=== PATIENT | male | born 1995 | race Caucasian/White ===

== ENCOUNTER 2016-04-17 00:37 | Emergency (ER) | payer OTHER ==
[2016-04-17] MEDS ORDERED: NS 0.9% 1000 ML* 3,000 ML IV ONE (01:25)
[2016-04-17] MEDS ORDERED: Ondansetron ODT TAB* 4 MG PO ONE (01:27)
[2016-04-17 01:40] LABS: Hematocrit 51 % (42-52); Hemoglobin 17.2 g/dl (14.0-18.0); Mean Corpuscular HGB Conc 34 g/dl (31-36); Mean Corpuscular Hemoglobin 29 pg (27-31); Mean Corpuscular Volume 86 fL (80-94); Mean Platelet Volume 8 um3 (7.4-10.4); Red Blood Count 5.89 10^6/ul (4.0-5.4); Red Cell Distribution Width 13 % (10.5-15); White Blood Count 16.7 10^3/ul (3.5-10.8)
[2016-04-17 01:46] LABS: Add Diff/Slide Review? Slide Review Added
[2016-04-17 01:51] LABS: Albumin 5.2 g/dL (3.2-5.2); BUN/Creatinine Ratio 17.2 (8-20); C Reactive Protein 1.43 mg/L (< 5.00); Calcium 10.3 mg/dL (8.6-10.3); EGFR African American 131.9 (>60); EGFR Non-African American 102.6 (>60); Globulin 2.7 g/dL (2-4); Magnesium 1.6 mg/dL (1.9-2.7); Total Bilirubin 1.2 mg/dL (0.2-1.0); Total Protein 7.9 g/dL (6.4-8.9)
[2016-04-17] MEDS ORDERED: Ondansetron ODT TAB* 4 MG SL ONE (02:15)
[2016-04-17 03:11] VITALS: BP 133/58
--- NOTE | 2016-04-17 20:50 | ED ---
Abdominal Pain/Male - HPI Summary HPI Summary: Patient arrives to ED 3 hours after eating some undercooked hamburger meat with CC of N/V/D. He states he feels extremely dehydrated, but vomiting and diarrhea has subsided. He still feels nauseous. He is requesting repletion of fluids. Denies sick contacts or recent illness. 3 episodes of vomiting, 1 episode of diarrhea since eating dinner. Denies fever, chills or sweats. - History of Current Complaint Chief Complaint: EDAbdPain Stated Complaint: VOMITING Time Seen by Provider: 04/17/16 01:22 Hx Obtained From: Patient Onset/Duration: Sudden Onset Timing: Constant Severity Initially: Moderate Severity Currently: Moderate Pain Intensity: 3 Pain Scale Used: 0-10 Numeric Location: Diffuse Radiates: No Character: Cramping Aggravating Factor(s): Nothing Alleviating Factor(s): Nothing Associated Signs And Symptoms: Positive: Nausea, Vomiting, Diarrhea - Risk Factors Testicular Torsion: Negative Cardiac Risk Factors: Negative - Allergies/Home Medications Allergies/Adverse Reactions: Allergies Allergy/AdvReac Type Severity Reaction Status Date / Time No Known Allergies Allergy Verified 04/17/16 01:35 Home Medications: Home Medications NK [No Home Medications Reported] 04/17/16 [History Confirmed 04/17/16] PMH/Surg Hx/FS Hx/Imm Hx Previously Healthy: Yes Infectious Disease History: No Infectious Disease History: Denies: Traveled Outside the [place] in Last 30 Days - Social History Occupation: Unemployed Lives: With Family Alcohol Use: Rare Hx Substance Use: No Substance Use Type: Reports: None Hx Tobacco Use: No Smoking Status (MU): Never Smoked Tobacco Review of Systems Constitutional: Negative Cardiovascular: Negative Respiratory: Negative Positive: Abdominal Pain, Vomiting, Diarrhea, Nausea Genitourinary: Negative Positive: no symptoms reported, see HPI Musculoskeletal: Negative Skin: Negative Psychological: Normal All Other Systems Reviewed And Are Negative: Yes Physical Exam Triage Information Reviewed: Yes Vital Signs On Initial Exam: Initial Vitals Temp Pulse Resp BP Pulse Ox 97.7 F 101 21 116/58 99 04/17/16 01:00 04/17/16 01:00 04/17/16 01:00 04/17/16 01:00 04/17/16 01:00 Vital Signs Reviewed: Yes Appearance: Positive: Well-Appearing, Well-Nourished Skin: Positive: Skin Color Reflects Adequate Perfusion Eyes: Positive: Normal, [place] Neck: Positive: Supple, No Lymphadenopathy Respiratory/Lung Sounds: Positive: Clear to Auscultation, Breath Sounds Present Cardiovascular: Positive: Normal, RRR Abdomen Description: Positive: Soft Bowel Sounds: Positive: Present Musculoskeletal: Positive: Normal, Strength/ROM Intact Neurological: Positive: Normal, Sensory/Motor Intact Psychiatric: Positive: Normal AVPU Assessment: Alert Diagnostics - Vital Signs Vital Signs Temp Pulse Resp BP Pulse Ox 04/17/16 03:07 99.2 F 89 21 133/58 04/17/16 03:06 99.2 F 89 21 133/54 99 04/17/16 01:00 97.7 F 101 21 116/58 99 - Laboratory Lab Results: Lab Results 04/17/16 04/17/16 Range/Units 01:05 01:05 WBC 16.7 H (3.5-10.8) 10^3/ul RBC 5.89 H (4.0-5.4) 10^6/ul Hgb 17.2 (14.0-18.0) g/dl Hct 51 (42-52) % MCV 86 (80-94) fL MCH 29 (27-31) pg MCHC 34 (31-36) g/dl RDW 13 (10.5-15) % Plt Count 258 (150-450) 10^3/ul MPV 8 (7.4-10.4) um3 Neut % (Auto) 86.5 H (38-83) % Lymph % (Auto) 5.5 L (25-47) % [place] % (Auto) 7.3 (1-9) % Eos % (Auto) 0.5 (0-6) % Baso % (Auto) 0.2 (0-2) % Absolute Neuts (auto) 14.5 H (1.5-7.7) 10^3/ul Absolute Lymphs (auto) 0.9 L (1.0-4.8) 10^3/ul Absolute Monos (auto) 1.2 H (0-0.8) 10^3/ul Absolute Eos (auto) 0.1 (0-0.6) 10^3/ul Absolute Basos (auto) 0 (0-0.2) 10^3/ul Absolute Nucleated RBC 0.02 10^3/ul Nucleated RBC % 0.1 Sodium 134 (133-145) mmol/L Potassium 4.0 (3.5-5.0) mmol/L Chloride 98 L (101-111) mmol/L Carbon Dioxide 23 (22-32) mmol/L Anion Gap 13 H (2-11) mmol/L BUN 16 (6-24) mg/dL Creatinine 0.93 (0.67-1.17) mg/dL Est GFR ( Amer) 131.9 (>60) Est GFR (Non-Af Amer) 102.6 (>60) BUN/Creatinine Ratio 17.2 (8-20) Glucose 130 H (70-100) mg/dL Calcium 10.3 (8.6-10.3) mg/dL Magnesium 1.6 L (1.9-2.7) mg/dL Total Bilirubin 1.20 H (0.2-1.0) mg/dL AST 26 (13-39) U/L ALT 40 (7-52) U/L Alkaline Phosphatase 70 (34-104) U/L Total Creatine Kinase 124 (10-223) U/L C-Reactive Protein 1.43 (< 5.00) mg/L Total Protein 7.9 (6.4-8.9) g/dL Albumin 5.2 (3.2-5.2) g/dL Globulin 2.7 (2-4) g/dL Albumin/Globulin Ratio 1.9 (1-3) Lipase 17 (11.0-82.0) U/L Result Diagrams: 04/17/16 01:05 04/17/16 01:05 Lab Statement: Any lab studies that have been ordered have been reviewed, and results considered in the medical decision making process. Abdominal Pain Fem Course/Dx - Course Course Of Treatment: Patient repleted with 3L fluids. zofran given. Labs WNL with white count slightly elevated. Patient feeling better after repletion and requesting home. Discharge with follow up - Diagnoses Differential Diagnosis/HQI/PQRI: Constipation, Peptic Ulcer Disease, Other - diarhea Provider Diagnoses: Nausea & vomiting Discharge - Discharge Plan Condition: Stable Disposition: HOME Patient Education Materials: Gastroenteritis (ED), Food Poisoning (ED) Forms: *School Release Referrals: [facility] MARGARITO Dorantes [Primary Care Provider] - Additional Instructions: Can take Zofran every 6 hours as needed for nausea Drink small amounts of fluid as tolerated When able to eat follow BRAT diet: Bananas, rice, applesauce, toast Symptoms likely due to viral gastroenteritis Take ibuprofen or Tylenol for pain as needed every 6 hours Follow up with primary within 5 days Return to ED if develop fever that does not respond to Tylenol or ibuprofen, severe abdominal pain, or any new or worsening symptoms
== END 2016-04-17 03:07 | disposition home or self-care (01) ==
LOC: ED 00:37
DX: R11.2 Nausea with vomiting, unspecified (principal); R19.7 Diarrhea, unspecified
CPT/HCPCS: 36415; 80053; 82550; 83690; 83735; 85025; 86140; 99283